=== PATIENT | male | born 1985 | race Caucasian/White ===

== ENCOUNTER 2020-05-23 15:53 | Emergency (ER) | payer OTHER ==
[2020-05-23 16:03] VITALS: RESP 16
--- NOTE | 2020-05-23 16:26 | ED ---
General Adult HPI - General Chief complaint: Seizure Stated complaint: seizure Time Seen by Provider: 05/23/20 15:55 Source: patient, EMS Mode of arrival: EMS Limitations: no limitations - History of Present Illness Initial comments: Dictation was produced using [employer] dictation software. please excuse any grammatical, word or spelling errors. This patient was cared for during a federal and state declared state of emergency secondary to Covid 19 Chief Complaint: 34-year-old male presents to the emergency room for seizure History of Present Illness: 34-year-old male who is brought to us via EMS from [facility]. Patient is they're trying to detoxify from alcohol and other drugs. Patient's history of seizures. Approximate 3:00 he was witnessed to have a seizure. According the transfer documentation he was postictal for several minutes. He does not recall the event. States that he has past medical history of seizure he is supposed to be on seizure medications. He states that the medication he is supposed beyond starts with a T. Patient believes that most of his seizures are due to alcohol withdrawal. Patient has no complaints at this time. The ROS documented in this emergency department record has been reviewed and confirmed by me. Those systems with pertinent positive or negative responses have been documented in the HPI. All other systems are other negative and/or noncontributory. PHYSICAL EXAM: General Impression: Alert and oriented x3, not in acute distress HEENT: Normocephalic atraumatic, extra-ocular movements intact, pupils equal and reactive to light bilaterally, mucous membranes moist. Cardiovascular: Heart regular rate and rhythm Chest: Able to complete full sentences, no retractions, no tachypnea Abdomen: abdomen soft, non-tender, non-distended, no organomegaly Musculoskeletal: Pulses present and equal in all extremities, no peripheral edema Motor: no focal deficits noted Neurological: CN II-XII grossly intact, no focal motor or sensory deficits noted Skin: Intact with no visualized rashes Psych: Normal affect and mood ED course: 34-year-old male with past medical history of seizures and alcohol abuse and alcohol withdrawal seizures presents after a seizure. Vital signs upon arrival are within acceptable limits. physical examination is benign. Return evaluation obtained. CBC, metabolic panel is unremarkable. Serum alcohol is negative. Patient observed in the emergency department for rocks while one hour with no recurrent seizures. He is reevaluated at 5:00 PM with stable medical condition. Patient will be discharged. He is strongly advised to follow-up with his primary care physician. He is told that he should likely be on antiepileptic medications. EKG interpretation: Ventricular rate 82, normal sinus rhythm, [place] interval 134, QRS 94, QTC 436.. No KY prolongation, no QTC prolongation, no ST or T-wave changes noted. No EKG for comparison. Overall, this EKG is unremarkable - Related Data Home Medications Medication Instructions Recorded Confirmed Acetaminophen Tab [Tylenol] 650 mg PO Q4H PRN 05/23/20 05/23/20 Calcium/Magnesium/Zinc 2 tab PO TID PRN 05/23/20 05/23/20 334mg/134mg/5mg Chlorpheniramine Maleate 4 mg PO Q4H PRN 05/23/20 05/23/20 [Chlor-Trimeton] Ibuprofen [Motrin] 600 mg PO Q6H PRN 05/23/20 05/23/20 Mirtazapine [Remeron] 30 mg PO HS@2200 05/23/20 05/23/20 Multivitamins, Thera [Multivitamin 1 tab PO DAILY@0600 05/23/20 05/23/20 (formulary)] Thiamine [Vitamin B-1] 100 mg PO DAILY@0600 05/23/20 05/23/20 Venlafaxine HCl [Effexor XR] 150 mg PO DAILY@0600 05/23/20 05/23/20 Allergies Allergy/AdvReac Type Severity Reaction Status Date / Time No Known Allergies Allergy Verified 05/23/20 16:39 Review of Systems ROS Statement: Those systems with pertinent positive or pertinent negative responses have been documented in the HPI. ROS Other: All systems not noted in ROS Statement are negative. 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 Past Psychological History: Depression Smoking Status: Current every day smoker Past Alcohol Use History: Abuse Past Drug Use History: None Reported General Exam Limitations: no limitations Course Vital Signs 05/23/20 15:58 Temperature 98.4 F Pulse Rate 87 Respiratory 16 Rate Blood Pressure 129/85 O2 Sat by Pulse 95 Oximetry Medical Decision Making - Lab Data Result diagrams: 05/23/20 16:27 05/23/20 16:27 Lab Results 05/23/20 05/23/20 05/23/20 Range/Units 16:27 16:27 16:37 WBC 14.5 H (3.8-10.6) k/uL RBC 4.91 (4.30-5.90) m/uL Hgb 15.4 (13.0-17.5) gm/dL Hct 46.4 (39.0-53.0) % MCV 94.5 (80.0-100.0) fL MCH 31.4 (25.0-35.0) pg MCHC 33.2 (31.0-37.0) g/dL RDW 13.0 (11.5-15.5) % Plt Count 326 (150-450) k/uL MPV 6.5 Neutrophils % 76 % Lymphocytes % 11 % Monocytes % 8 % Eosinophils % 3 % Basophils % 1 % Neutrophils # 10.9 H (1.3-7.7) k/uL Lymphocytes # 1.6 (1.0-4.8) k/uL Monocytes # 1.2 H (0-1.0) k/uL Eosinophils # 0.5 (0-0.7) k/uL Basophils # 0.1 (0-0.2) k/uL Sodium 136 L (137-145) mmol/L Potassium 4.5 (3.5-5.1) mmol/L Chloride 103 (98-107) mmol/L Carbon Dioxide 25 (22-30) mmol/L Anion Gap 8 mmol/L BUN 15 (9-20) mg/dL Creatinine 0.72 (0.66-1.25) mg/dL Est GFR (CKD-EPI)AfAm >90 (>60 ml/min/1.73 sqM) Est GFR (CKD-EPI)NonAf >90 (>60 ml/min/1.73 sqM) Glucose 101 H (74-99) mg/dL POC Glucose (mg/dL) 117 H (75-99) mg/dL POC Glu Computer Systems Manager ID [email or web address] Calcium 9.8 (8.4-10.2) mg/dL Magnesium 2.0 (1.6-2.3) mg/dL Total Bilirubin 0.3 (0.2-1.3) mg/dL AST 33 (17-59) U/L ALT 33 (4-49) U/L Alkaline Phosphatase 51 (38-126) U/L Total Protein 6.8 (6.3-8.2) g/dL Albumin 3.9 (3.5-5.0) g/dL Serum Alcohol <10 mg/dL Disposition Clinical Impression: Recurrent seizures Disposition: HOME SELF-CARE Condition: Fair Instructions (If sedation given, give patient instructions): Recurrent Seizures in Adults (ED) Additional Instructions: Follow-up with her primary care doctor to have your antiepileptic medication restarted. In the meantime no driving. Is patient prescribed a controlled substance at d/c from ED?: No Referrals: None,Stated [Primary Care Provider] - 1-2 days Time of Disposition: 17:02
[2020-05-23 16:39] LABS: Glucose,Whole Blood 117 mg/dL (75-99)
[2020-05-23 16:40] LABS: Basophils # (A) 0.1 k/uL (0-0.2); Basophils % (A) 1 %; Eosinophils # (A) 0.5 k/uL (0-0.7); Eosinophils % (A) 3 %; HCT 46.4 % (39.0-53.0); HGB 15.4 gm/dL (13.0-17.5); Lymphocytes # (A) 1.6 k/uL (1.0-4.8); Lymphocytes % (A) 11 %; MCH 31.4 pg (25.0-35.0); MCHC 33.2 g/dL (31.0-37.0); MCV 94.5 fL (80.0-100.0); Mean Platelet Volume 6.5; Monocytes # (A) 1.2 k/uL (0-1.0); Monocytes % (A) 8 %; Neutrophils # (A) 10.9 k/uL (1.3-7.7); Neutrophils % (A) 76 %; Platelet Count 326 k/uL (150-450); RBC 4.91 m/uL (4.30-5.90); WBC 14.5 k/uL (3.8-10.6)
[2020-05-23 16:52] LABS: ALT 33 U/L (4-49); AST 33 U/L (17-59); African American GFR (CKD) >90 (>60 ml/min/1.73 sqM); Albumin 3.9 g/dL (3.5-5.0); Alcohol <10 mg/dL; Alkaline Phosphatase 51 U/L (38-126); Anion Gap 8 mmol/L; Blood Urea Nitrogen 15 mg/dL (9-20); Calcium 9.8 mg/dL (8.4-10.2); Carbon Dioxide 25 mmol/L (22-30); Chloride 103 mmol/L (98-107); Glucose 101 mg/dL (74-99); Non-African American GFR(CKD) >90 (>60 ml/min/1.73 sqM); Potassium 4.5 mmol/L (3.5-5.1); Sodium 136 mmol/L (137-145); Total Bilirubin 0.3 mg/dL (0.2-1.3); Total Protein 6.8 g/dL (6.3-8.2)
[2020-05-23 17:42] VITALS: BP 122/78; PULSE 84; TEMP 98
== END 2020-05-23 17:40 | disposition home or self-care (01) ==
LOC: EC 15:53
DX: G40.909 Epilepsy, unspecified, not intractable, without status epilepticus (principal); F32.9 Major depressive disorder, single episode, unspecified; F17.200 Nicotine dependence, unspecified, uncomplicated; Z79.899 Other long term (current) drug therapy
CPT/HCPCS: 36415; 93005; 80053; 83735; 85025; 99284; G0480; 80320

== ENCOUNTER → 2021-01-01 | Outpatient (CLI) | payer OTHER ==
[2021-01-02 08:14] LABS: ALT 29 U/L (10-49); AST 26 U/L (14-35); African American GFR (CKD) 142.7 (60.0-200.0); Albumin 4.2 g/dL (3.8-4.9); Albumin/Globulin Ratio 1.75 (1.60-3.17); Alkaline Phosphatase 65 U/L (41-126); Blood Urea Nitrogen 11.9 mg/dL (9.0-27.0); Calcium 9.7 mg/dL (8.7-10.3); Chloride 103 mmol/L (96-109); Globulin 2.4 g/dL (1.6-3.3); Glucose 114 mg/dL (70-110); Non-African American GFR(CKD) 123.1 (60.0-200.0); Potassium 4.4 mmol/L (3.5-5.5); Sodium 139 mmol/L (135-145); Total Bilirubin <0.20 mg/dL (0.30-1.20); Total Protein 6.6 g/dL (6.2-8.2)
== END | disposition home or self-care (01) ==
LOC: LABWHC1 14:34
PROVIDERS: ATTEND Psychologist Clinical
DX: F10.20 Alcohol dependence, uncomplicated (principal)
CPT/HCPCS: 36415; 80053

== ENCOUNTER 2024-03-04 13:37 | Inpatient (IN) | payer OTHER, MEDICAID ==
[2024-03-04 14:17] LABS: Basophils % (A) 0 %; Eosinophils # (A) 0.1 k/uL (0-0.7); Eosinophils % (A) 1 %; HCT 46.9 % (39.0-53.0); HGB 15.8 gm/dL (13.0-17.5); Lymphocytes # (A) 1.2 k/uL (1.0-4.8); Lymphocytes % (A) 17 %; MCH 31.7 pg (25.0-35.0); MCHC 33.8 g/dL (31.0-37.0); Mean Platelet Volume 7.2; Monocytes # (A) 0.5 k/uL (0-1.0); Monocytes % (A) 7 %; Neutrophils # (A) 4.9 k/uL (1.3-7.7); Neutrophils % (A) 72 %; Platelet Count 226 k/uL (150-450); RBC 4.99 m/uL (4.30-5.90); RDW 13.3 % (11.5-15.5); WBC 6.8 k/uL (3.8-10.6)
[2024-03-04 14:22] LABS: Appearance,Urine Clear (Clear); Bilirubin,Urine Negative (Negative); Blood,Urine Negative (Negative); Color,Urine Yellow; Glucose,Urine (UA) Negative (Negative); Ketones,Urine Negative (Negative); Leukocyte Esterase,Urine Negative (Negative); Nitrite,Urine Negative (Negative); Protein,Urine Negative (Negative); Specific Gravity,Urine 1.013 (1.001-1.035)
[2024-03-04 14:37] LABS: ALT 29 U/L (4-49); AST 47 U/L (17-59); African American GFR (CKD) >90 (>60 ml/min/1.73 sqM); Albumin 4.5 g/dL (3.5-5.0); Alcohol <10 mg/dL; Alkaline Phosphatase 50 U/L (38-126); Anion Gap 7 mmol/L; Blood Urea Nitrogen 8 mg/dL (9-20); Calcium 9.5 mg/dL (8.4-10.2); Carbon Dioxide 31 mmol/L (22-30); Chloride 99 mmol/L (98-107); Glucose 115 mg/dL (74-99); Non-African American GFR(CKD) >90 (>60 ml/min/1.73 sqM); Potassium 3.7 mmol/L (3.5-5.1); Salicylate <1.0 mg/dL; Sodium 137 mmol/L (137-145); Total Protein 7.3 g/dL (6.3-8.2)
--- NOTE | 2024-03-04 14:42 | ED ---
Altered Mental Status HPI - General Chief Complaint: Altered Mental Status Stated Complaint: Mental Health Time Seen by Provider: 03/04/24 13:45 Source: patient, EMS Mode of arrival: EMS - History of Present Illness Initial Comments: 38-year-old male presents emergency department from his home. He is accompanied by officers. Patient was found in the parking lot of his apartment building. He was attempting to go through cars. He had a pillowcase over his head. He had very nonsensical speech. EMS was called to the scene and was required to transport the patient. The deposition operator states that the patient was talking to a man in the ambulance who was not there. I did attempt to question the patient as to why he is here however he is not sure. He reports that he is "not in tune with himself". He continues to be preoccupied by external stimuli he denies drug use. Admits to previous heavy alcohol use however quit drinking heavy 2 years ago. He does admit to drinking a bottle of Robitussin today in order to try and sleep. Denies having any family in the area. No other alleviating, precipitating or modifying factors - Related Data Previous Rx's Medication Instructions Recorded Paliperidone [Invega] 6 mg PO HS 30 Days #30 tab 03/07/24 traZODone HCL [Desyrel] 100 mg PO HS 30 Days #30 tab 03/07/24 Allergies Allergy/AdvReac Type Severity Reaction Status Date / Time No Known Allergies Allergy Verified 03/04/24 13:46 Review of Systems ROS Statement: Those systems with pertinent positive or pertinent negative responses have been documented in the HPI. ROS Other: All systems not noted in ROS Statement are negative. 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 Past Psychological History: Depression Smoking Status: Current every day smoker Past Alcohol Use History: Abuse Past Drug Use History: None Reported - Past Family History Mother History Unknown: Yes General Exam Limitations: altered mental status General appearance: alert Head exam: Present: atraumatic, normocephalic, normal inspection Eye exam: Present: normal appearance, PERRL, EOMI. Absent: scleral icterus, conjunctival injection, periorbital swelling ENT exam: Present: normal exam, mucous membranes moist Neck exam: Present: normal inspection. Absent: tenderness, meningismus, lym phadenopathy Respiratory exam: Present: normal lung sounds bilaterally. Absent: respiratory distress, wheezes, rales, rhonchi, stridor Cardiovascular Exam: Present: regular rate, normal rhythm, normal heart sounds. Absent: systolic murmur, diastolic murmur, rubs, gallop, clicks GI/Abdominal exam: Present: soft, normal bowel sounds. Absent: distended, tenderness, guarding, rebound, rigid Extremities exam: Present: normal inspection, full ROM, normal capillary refill. Absent: tenderness, pedal edema, joint swelling, calf tenderness Back exam: Present: normal inspection Neurological exam: Present: altered, CN II-XII intact Psychiatric exam: Present: agitated, anxious, manic Skin exam: Present: warm, dry, intact, normal color. Absent: rash Course Vital Signs 03/04/24 03/04/24 03/05/24 13:39 22:25 01:31 Temperature 98.4 F Pulse Rate 98 100 98 Respiratory 20 18 18 Rate Blood Pressure 149/92 150/90 138/98 O2 Sat by Pulse 96 98 100 Oximetry Medical Decision Making - Medical Decision Making Was pt. sent in by a medical professional or institution ([facility], P[facility]ET CLOSER, urgent care, hospital, or skilled nursing...) When possible be specific @ -Patient was brought in by police Did you speak to anyone other than the patient for history (EMS, parent, family, police, friend...)? What history was obtained from this source @ -Spoke with police and EMS for history Did you review nursing and triage notes (agree or disagree)? Why? @ -I reviewed and agree with nursing and triage notes Were old charts reviewed (outside hosp., previous admission, EMS record, old EKG, old radiological studies, urgent care reports/EKG's, skilled nursing records)? Report findings @ -No old charts were reviewed Differential Diagnosis (chest pain, altered mental status, abdominal pain women, abdominal pain men, vaginal bleeding, weakness, fever, dyspnea, syncope, headache, dizziness, GI bleed, back pain, seizure, CVA, palpatations, mental health, musculoskeletal)? @ -Differential Mental Health Depression, anxiety, bipolar, psychosis, schizophrenia, borderline personality, situational depression, adjustment disorder, behavioral disorder, brain tumor, malingering, substance abuse, encephalopathy, medication reaction, dementia, hypothyroidism, degenerative neurologic disorder, lupus.... This is not meant to be all-inclusive list EKG interpreted by me (3pts min.). @ -Yes and demonstrates sinus rhythm with a rate of 85. ND interval 130. QRS 96. QTc of 401. No acute ST segment elevations or depressions X-rays interpreted by me (1pt min.). @ -None done CT interpreted by me (1pt min.). @ -None done U/S interpreted by me (1pt. min.). @ -None done What testing was considered but not performed or refused? (CT, X-rays, U/S, labs)? Why? @ -None What meds were considered but not given or refused? Why? @ -None Did you discuss the management of the patient with other professionals (professionals i.e. , PA, POCKET CLOSER, lab, RT, psych nurse, oncology social work, mixing roll operator, teacher, youth officer, rn case manager hospice)? Give summary @ -Spoke with Talib, the [facility] oncology social work and made him aware that the patient was medically clear at 3:15 PM. He reports that he will pass on the note to his colleague Rochelle who will come down and evaluate the patient. I did speak with Rochelle myself x 2 via phone to ask if patient had been evaluated Was smoking cessation discussed for >3mins.? @ -No Was critical care preformed (if so, how long)? @ -No Were there social determinants of health that impacted care today? How? (Homelessness, low income, unemployed, alcoholism, drug addiction, transporta tion, low edu. Level, literacy, decrease access to med. care, prison, rehab)? @ -No Was there de-escalation of care discussed even if they declined (Discuss DNR or withdrawal of care, Hospice)? DNR status @ -No What co-morbidities impacted this encounter? (DM, HTN, Smoking, COPD, CAD, Cancer, CVA, ARF, Chemo, Hep., AIDS, mental health diagnosis, sleep apnea, morbid obesity)? @ -None Was patient admitted / discharged? Hospital course, mention meds given and route, prescriptions, significant lab abnormalities, going to OR and other pertinent info. @ -Upon arrival patient seen and evaluated in bed 6. Thorough history and physical exam was performed. Laboratory studies are conducted. Urinalysis was obtained. Patient was made medically clear at 3:15 PM. EPS was notified. After evaluation it was recommended that the patient be admitted and he did sign himself in. Patient will be taken for in stable condition Undiagnosed new problem with uncertain prognosis? @ -No Drug Therapy requiring intensive monitoring for toxicity (Heparin, Nitro, Insulin, Cardizem)? @ -No Were any procedures done? @ -No Diagnosis/symptom? @ -Acute delusional behavior Acute, or Chronic, or Acute on Chronic? @ -Acute Uncomplicated (without systemic symptoms) or Complicated (systemic symptoms)? @ -Complicated Side effects of treatment? @ -No Exacerbation, Progression, or Severe Exacerbation? @ -No Poses a threat to life or bodily function? How? (Chest pain, [place], [place], pneumonia, PE, COPD, DKA, ARF, appy, cholecystitis, CVA, Diverticulitis, Homicidal, Suicidal, threat to staff... and all critical care pts) @ -No - Lab Data Result diagrams: 03/04/24 14:07 03/04/24 14:07 Lab Results 03/04/24 03/04/24 03/04/24 Range/Units 14:07 14:07 14:07 WBC 6.8 (3.8-10.6) k/uL RBC 4.99 (4.30-5.90) m/uL Hgb 15.8 (13.0-17.5) gm/dL Hct 46.9 (39.0-53.0) % MCV 94.0 (80.0-100.0) fL MCH 31.7 (25.0-35.0) pg MCHC 33.8 (31.0-37.0) g/dL RDW 13.3 (11.5-15.5) % Plt Count 226 (150-450) k/uL MPV 7.2 Neutrophils % 72 % Lymphocytes % 17 % Monocytes % 7 % Eosinophils % 1 % Basophils % 0 % Neutrophils # 4.9 (1.3-7.7) k/uL Lymphocytes # 1.2 (1.0-4.8) k/uL Monocytes # 0.5 (0-1.0) k/uL Eosinophils # 0.1 (0-0.7) k/uL Basophils # 0.0 (0-0.2) k/uL Sodium 137 (137-145) mmol/L Potassium 3.7 (3.5-5.1) mmol/L Chloride 99 (98-107) mmol/L Carbon Dioxide 31 H (22-30) mmol/L Anion Gap 7 mmol/L BUN 8 L (9-20) mg/dL Creatinine 0.78 (0.66-1.25) mg/dL Est GFR (CKD-EPI)AfAm >90 (>60 ml/min/1.73 sqM) Est GFR (CKD-EPI)NonAf >90 (>60 ml/min/1.73 sqM) Glucose 115 H (74-99) mg/dL Estimated Ave Glu mg/dL mg/dL Hemoglobin A1c (<=6.0) % Calcium 9.5 (8.4-10.2) mg/dL Total Bilirubin 1.0 (0.2-1.3) mg/dL AST 47 (17-59) U/L ALT 29 (4-49) U/L Alkaline Phosphatase 50 (38-126) U/L Total Protein 7.3 (6.3-8.2) g/dL Albumin 4.5 (3.5-5.0) g/dL Triglycerides Cholesterol LDL Cholesterol Direct LDL Cholesterol, Calc VLDL Cholesterol, Calc HDL Cholesterol Cholesterol/HDL Ratio TSH Urine Color Yellow Urine Appearance Clear (Clear) Urine pH 7.0 (5.0-8.0) Ur Specific [place] 1.013 (1.001-1.035) Urine Protein Negative (Negative) Urine Glucose (UA) Negative (Negative) Urine Ketones Negative (Negative) Urine Blood Negative (Negative) Urine Nitrite Negative (Negative) Urine Bilirubin Negative (Negative) Urine Urobilinogen 2.0 (<2.0) mg/dL Ur Leukocyte Esterase Negative (Negative) Salicylates <1.0 mg/dL Urine Opiates Screen Not Detected (NotDetected) Ur Oxycodone Screen Not Detected (NotDetected) Urine Methadone Screen Not Detected (NotDetected) Acetaminophen 12.0 ug/mL Ur Barbiturates Screen Not Detected (NotDetected) U Tricyclic Antidepress Not Detected (NotDetected) Ur Phencyclidine Scrn Not Detected (NotDetected) Ur Amphetamines Screen Not Detected (NotDetected) U Methamphetamines Scrn Not Detected (NotDetected) U Benzodiazepines Scrn Not Detected (NotDetected) Urine Cocaine Screen Not Detected (NotDetected) U Marijuana (THC) Screen Detected H (NotDetected) Serum Alcohol <10 mg/dL Influenza Type A (PCR) (Not Detectd) Influenza Type B (PCR) (Not Detectd) RSV (PCR) (Not Detectd) SARS-CoV-2 (PCR) (Not Detectd) 03/04/24 03/04/24 03/04/24 Range/Units 14:07 14:07 14:07 WBC (3.8-10.6) k/uL RBC (4.30-5.90) m/uL Hgb (13.0-17.5) gm/dL Hct (39.0-53.0) % MCV (80.0-100.0) fL MCH (25.0-35.0) pg MCHC (31.0-37.0) g/dL RDW (11.5-15.5) % Plt Count (150-450) k/uL MPV Neutrophils % % Lymphocytes % % Monocytes % % Eosinophils % % Basophils % % Neutrophils # (1.3-7.7) k/uL Lymphocytes # (1.0-4.8) k/uL Monocytes # (0-1.0) k/uL Eosinophils # (0-0.7) k/uL Basophils # (0-0.2) k/uL Sodium (137-145) mmol/L Potassium (3.5-5.1) mmol/L Chloride (98-107) mmol/L Carbon Dioxide (22-30) mmol/L Anion Gap mmol/L BUN (9-20) mg/dL Creatinine (0.66-1.25) mg/dL Est GFR (CKD-EPI)AfAm (>60 ml/min/1.73 sqM) Est GFR (CKD-EPI)NonAf (>60 ml/min/1.73 sqM) Glucose (74-99) mg/dL Estimated Ave Glu mg/dL 105 mg/dL Hemoglobin A1c 5.3 (<=6.0) % Calcium (8.4-10.2) mg/dL Total Bilirubin (0.2-1.3) mg/dL AST (17-59) U/L ALT (4-49) U/L Alkaline Phosphatase (38-126) U/L Total Protein (6.3-8.2) g/dL Albumin (3.5-5.0) g/dL Triglycerides Cancelled Cholesterol Cancelled LDL Cholesterol Direct Cancelled LDL Cholesterol, Calc Cancelled VLDL Cholesterol, Calc Cancelled HDL Cholesterol Cancelled Cholesterol/HDL Ratio Cancelled TSH POCKET CLOSER 2.390 Urine Color Urine Appearance (Clear) Urine pH (5.0-8.0) Ur Specific [place] (1.001-1.035) Urine Protein (Negative) Urine Glucose (UA) (Negative) Urine Ketones (Negative) Urine Blood (Negative) Urine Nitrite (Negative) Urine Bilirubin (Negative) Urine Urobilinogen (<2.0) mg/dL Ur Leukocyte Esterase (Negative) Salicylates mg/dL Urine Opiates Screen (NotDetected) Ur Oxycodone Screen (NotDetected) Urine Methadone Screen (NotDetected) Acetaminophen ug/mL Ur Barbiturates Screen (NotDetected) U Tricyclic Antidepress (NotDetected) Ur Phencyclidine Scrn (NotDetected) Ur Amphetamines Screen (NotDetected) U Methamphetamines Scrn (NotDetected) U Benzodiazepines Scrn (NotDetected) Urine Cocaine Screen (NotDetected) U Marijuana (THC) Screen (NotDetected) Serum Alcohol mg/dL Influenza Type A (PCR) (Not Detectd) Influenza Type B (PCR) (Not Detectd) RSV (PCR) (Not Detectd) SARS-CoV-2 (PCR) (Not Detectd) 03/04/24 Range/Units 23:00 WBC (3.8-10.6) k/uL RBC (4.30-5.90) m/uL Hgb (13.0-17.5) gm/dL Hct (39.0-53.0) % MCV (80.0-100.0) fL MCH (25.0-35.0) pg MCHC (31.0-37.0) g/dL RDW (11.5-15.5) % Plt Count (150-450) k/uL MPV Neutrophils % % Lymphocytes % % Monocytes % % Eosinophils % % Basophils % % Neutrophils # (1.3-7.7) k/uL Lymphocytes # (1.0-4.8) k/uL Monocytes # (0-1.0) k/uL Eosinophils # (0-0.7) k/uL Basophils # (0-0.2) k/uL Sodium (137-145) mmol/L Potassium (3.5-5.1) mmol/L Chloride (98-107) mmol/L Carbon Dioxide (22-30) mmol/L Anion Gap mmol/L BUN (9-20) mg/dL Creatinine (0.66-1.25) mg/dL Est GFR (CKD-EPI)AfAm (>60 ml/min/1.73 sqM) Est GFR (CKD-EPI)NonAf (>60 ml/min/1.73 sqM) Glucose (74-99) mg/dL Estimated Ave Glu mg/dL mg/dL Hemoglobin A1c (<=6.0) % Calcium (8.4-10.2) mg/dL Total Bilirubin (0.2-1.3) mg/dL AST (17-59) U/L ALT (4-49) U/L Alkaline Phosphatase (38-126) U/L Total Protein (6.3-8.2) g/dL Albumin (3.5-5.0) g/dL Triglycerides Cholesterol LDL Cholesterol Direct LDL Cholesterol, Calc VLDL Cholesterol, Calc HDL Cholesterol Cholesterol/HDL Ratio TSH Urine Color Urine Appearance (Clear) Urine pH (5.0-8.0) Ur Specific [place] (1.001-1.035) Urine Protein (Negative) Urine Glucose (UA) (Negative) Urine Ketones (Negative) Urine Blood (Negative) Urine Nitrite (Negative) Urine Bilirubin (Negative) Urine Urobilinogen (<2.0) mg/dL Ur Leukocyte Esterase (Negative) Salicylates mg/dL Urine Opiates Screen (NotDetected) Ur Oxycodone Screen (NotDetected) Urine Methadone Screen (NotDetected) Acetaminophen ug/mL Ur Barbiturates Screen (NotDetected) U Tricyclic Antidepress (NotDetected) Ur Phencyclidine Scrn (NotDetected) Ur Amphetamines Screen (NotDetected) U Methamphetamines Scrn (NotDetected) U Benzodiazepines Scrn (NotDetected) Urine Cocaine Screen (NotDetected) U Marijuana (THC) Screen (NotDetected) Serum Alcohol mg/dL Influenza Type A (PCR) Not Detected (Not Detectd) Influenza Type B (PCR) Not Detected (Not Detectd) RSV (PCR) Not Detected (Not Detectd) SARS-CoV-2 (PCR) Not Detected (Not Detectd) Disposition Clinical Impression: Unspecified psychosis Disposition: TRANSFER TO PSYCH HOSP/UNIT Condition: Stable
[2024-03-04 14:48] LABS: Amphetamine Screen,Urine Not Detected (NotDetected); Barbiturate Screen,Urine Not Detected (NotDetected); Benzodiazepines Screen,Urine Not Detected (NotDetected); Cocaine Screen,Urine Not Detected (NotDetected); Methadone Screen, Urine Not Detected (NotDetected); Opiate Screen,Urine Not Detected (NotDetected); Oxycodone Screen, Urine Not Detected (NotDetected); Phencyclidine Screen,Urine Not Detected (NotDetected); Tricyclic Antidepressant,Urine Not Detected (NotDetected); Urn Cannabinoid Scrn Detected (NotDetected)
[2024-03-05] MEDS ORDERED: MAGNESIUM HYDROXIDE 2,400 MG/30 ML CUP PO PRN (01:11)
[2024-03-05] MEDS ORDERED: HALOPERIDOL LACTATE 5 MG/ML 1 ML VIAL IM PRN (01:11)
[2024-03-05] MEDS ORDERED: LORazepam 2 MG/ML INJ IM PRN (01:11)
[2024-03-05] MEDS: LORazepam 1 MG TAB PO PRN (03:23)
[2024-03-05] MEDS: haloperidoL 5 MG TAB PO PRN (03:23)
[2024-03-05] MEDS: traZODone HCL 50 MG TAB PO PRN (03:23)
[2024-03-05] MEDS: IBUPROFEN 600 MG TAB PO PRN (08:30)
[2024-03-05] MEDS: NICOTINE 14MG/24HR PATCH TRANSDERM SCH (08:31)
[2024-03-05] MEDS: PALIPERIDONE 3 MG TAB.ER.24 PO SCH (12:27)
--- NOTE | 2024-03-05 12:27 | P.HP ---
Psychiatric H&P - . H&P Date: 03/05/24 History & Physical: Allergies Allergy/AdvReac Type Severity Reaction Status Date / Time No Known Allergies Allergy Verified 03/04/24 13:46 Vital Signs Temp 98.0 F 03/05/24 02:59 Pulse 77 03/05/24 02:59 Resp 18 03/05/24 02:59 BP 141/93 03/05/24 02:59 Pulse Ox 98 03/05/24 02:59 FiO2 Intake & Output 03/04/24 03/05/24 03/05/24 18:59 06:59 18:59 Weight 99.79 kg 88.1 kg Laboratory Last Values WBC 6.8 k/uL (3.8-10.6) 03/04/24 14:07 RBC 4.99 m/uL (4.30-5.90) 03/04/24 14:07 Hgb 15.8 gm/dL (13.0-17.5) 03/04/24 14:07 Hct 46.9 % (39.0-53.0) 03/04/24 14:07 MCV 94.0 fL (80.0-100.0) 03/04/24 14:07 MCH 31.7 pg (25.0-35.0) 03/04/24 14:07 MCHC 33.8 g/dL (31.0-37.0) 03/04/24 14:07 RDW 13.3 % (11.5-15.5) 03/04/24 14:07 Plt Count 226 k/uL (150-450) 03/04/24 14:07 MPV 7.2 03/04/24 14:07 Neutrophils % 72 % 03/04/24 14:07 Lymphocytes % 17 % 03/04/24 14:07 Monocytes % 7 % 03/04/24 14:07 Eosinophils % 1 % 03/04/24 14:07 Basophils % 0 % 03/04/24 14:07 Neutrophils # 4.9 k/uL (1.3-7.7) 03/04/24 14:07 Lymphocytes # 1.2 k/uL (1.0-4.8) 03/04/24 14:07 Monocytes # 0.5 k/uL (0-1.0) 03/04/24 14:07 Eosinophils # 0.1 k/uL (0-0.7) 03/04/24 14:07 Basophils # 0.0 k/uL (0-0.2) 03/04/24 14:07 Sodium 137 mmol/L (137-145) 03/04/24 14:07 Potassium 3.7 mmol/L (3.5-5.1) 03/04/24 14:07 Chloride 99 mmol/L (98-107) 03/04/24 14:07 Carbon Dioxide 31 mmol/L (22-30) H 03/04/24 14:07 Anion Gap 7 mmol/L 03/04/24 14:07 BUN 8 mg/dL (9-20) L 03/04/24 14:07 Creatinine 0.78 mg/dL (0.66-1.25) 03/04/24 14:07 Est GFR (CKD-EPI)AfAm >90 (>60 ml/min/1.73 sqM) 03/04/24 14:07 Est GFR (CKD-EPI)NonAf >90 (>60 ml/min/1.73 sqM) 03/04/24 14:07 Glucose 115 mg/dL (74-99) H 03/04/24 14:07 Calcium 9.5 mg/dL (8.4-10.2) 03/04/24 14:07 Total Bilirubin 1.0 mg/dL (0.2-1.3) 03/04/24 14:07 AST 47 U/L (17-59) 03/04/24 14:07 ALT 29 U/L (4-49) 03/04/24 14:07 Alkaline Phosphatase 50 U/L (38-126) 03/04/24 14:07 Total Protein 7.3 g/dL (6.3-8.2) 03/04/24 14:07 Albumin 4.5 g/dL (3.5-5.0) 03/04/24 14:07 Urine Color Yellow 03/04/24 14:07 Urine Appearance Clear (Clear) 03/04/24 14:07 Urine pH 7.0 (5.0-8.0) 03/04/24 14:07 Ur Specific [place] Range 1.013 (1.001-1.035) 03/04/24 14:07 Urine Protein Negative (Negative) 03/04/24 14:07 Urine Glucose (UA) Negative (Negative) 03/04/24 14:07 Urine Ketones Negative (Negative) 03/04/24 14:07 Urine Blood Negative (Negative) 03/04/24 14:07 Urine Nitrite Negative (Negative) 03/04/24 14:07 Urine Bilirubin Negative (Negative) 03/04/24 14:07 Urine Urobilinogen 2.0 mg/dL (<2.0) 03/04/24 14:07 Ur Leukocyte Esterase Negative (Negative) 03/04/24 14:07 Salicylates <1.0 mg/dL 03/04/24 14:07 Urine Opiates Screen Not Detected (NotDetected) 03/04/24 14:07 Ur Oxycodone Screen Not Detected (NotDetected) 03/04/24 14:07 Urine Methadone Screen Not Detected (NotDetected) 03/04/24 14:07 Acetaminophen 12.0 ug/mL 03/04/24 14:07 Ur Barbiturates Screen Not Detected (NotDetected) 03/04/24 14:07 U Tricyclic Antidepress Not Detected (NotDetected) 03/04/24 14:07 Ur Phencyclidine Scrn Not Detected (NotDetected) 03/04/24 14:07 Ur Amphetamines Screen Not Detected (NotDetected) 03/04/24 14:07 U Methamphetamines Scrn Not Detected (NotDetected) 03/04/24 14:07 U Benzodiazepines Scrn Not Detected (NotDetected) 03/04/24 14:07 Urine Cocaine Screen Not Detected (NotDetected) 03/04/24 14:07 U Marijuana (THC) Screen Detected (NotDetected) H 03/04/24 14:07 Serum Alcohol <10 mg/dL 03/04/24 14:07 Influenza Type A (PCR) Not Detected (Not Detectd) 03/04/24 23:00 Influenza Type B (PCR) Not Detected (Not Detectd) 03/04/24 23:00 RSV (PCR) Not Detected (Not Detectd) 03/04/24 23:00 SARS-CoV-2 (PCR) Not Detected (Not Detectd) 03/04/24 23:00 03/05/24 12:20 IDENTIFYING DATA: Patient is a 38-year-old male, employed and living alone CHIEF COMPLAINT: Psychosis HPI: Patient presented to the hospital with mental health concerns. EPS note revealed, "pt sitting on chair in corner of room. pt states, "I'm just here figuring to get checked out, I guess." pt states that he felt "off" today, so he came to the hospital to be evaluated. pt was brought in and petitioned by police. pt has small wound on right side of the bridge of his nose and also one near his eyebrow. When asked how he injured himself, pt states, "I'm all fucked up. I'm guessing a drunk accident." pt also showed scientific writer his right outer thigh where there is a large bruise. pt denies SI. pt does report history of suicide attempts. pt states that he attempted "a long, long time ago" and also about 4 years ago by hanging. pt denies HI. pt initially denies hallucinations. However, pt then states, "Oh. Yeah. All the time," before denying it again. pt reports that he has been experiencing poor sleep for the past ccouple of weeks, stating that he has been "up for two days straight." pt also reports fluctuating appetite. Per petition, pt was seen with pillowcase over his head picking at the ground and was also attempting to speak with police at the squad car window despite police all being outside the car." Patient seen and evaluated on the unit and was agreeable with speaking to scientific writer in office. He states his ex girlfriend and him got into some trouble with "the marlene who runs this place" and that people have been out to harm both of them due to her inability to pay them back. He states he is no longer with his ex and that he has been unable to get in contact with her. He states he has been feeling this way since Monday and has been staying up at nighttime due to his fear about people harming him in his sleep. He describes these people as several individuals, wearing suits and have the ability to disappear. He states they have been listening to him through his [employer] and that he hears their voices however he denies any auditory hallucinations right now. He states he did ingest Robitussin to help with his sleep but he vehemently denied any substance use despite UDS being positive for cannabis. Patient displays poor insight into his need for treatment, stating he just needs to sleep however was agreeable with starting Invega. Patient denies any suicidal or homicidal ideations intent or plan. At this time patient denies any auditory or visual hallucinations. Patient denies any flight of ideas racing thoughts and increased in goal directed behavior. Patient admits to using nicotine, smoking 1 pack a day and vaping. PAST PSYCHIATRIC HISTORY: Patient has a history of alcohol use disorder. Patient denies being on any psychiatric medications. He has tried trazodone and Seroquel in the past. He reports 2 previous inpatient hospitalizations, most recent in 2017. Patient denies any psychiatric outpatient follow-up. He reports 1 prior suicide attempt PMH: as per ER note ALLERGIES: as per EMR SUBSTANCE USE HISTORY: As per HPI FAMILY PSYCHIATRIC/SUBSTANCE USE HISTORY: Reports his father abused alcohol SOCIAL HISTORY: Patient has 1 grown son however he reports living alone. He is single and works in construction. He completed high school. MENTAL STATUS EXAM: General Appearance: Patient appears to be stated age is alert, directable, and attempts to cooperate. Patient appears to have poor hygiene and grooming. Notably has several bruises on his face Behavior: Patient is seated without any agitated behavior. Speech: Patient's speech is fluent and nonpressured. Mood/Affect: Patient reports their mood is "all right", affect is congruent and constricted. Suicidality/Homicidality: Patient denies having any homicidal ideation intent or plan. Denies any suicidal ideations intent or plan Perceptions: Patient denies any visual hallucinations and denies any auditory hallucinations Though content/process: There is evidence of paranoia, delusional and disorganized thoughts expressed Memory and concentration: AOX3, grossly intact for the purposes of this session. Can spell "WORLD" backwards Judgment and insight: Poor STRENGTHS/WEAKNESSES: strength is that patient is resilient. Weakness is that patient has poor judgment, uses substances and is impulsive INTELLECT: Average IMPRESSIONS: Psychosis, unspecified Rule out substance-induced psychosis Cannabis use disorder Alcohol use disorder Nicotine dependence PLAN: -Patient is admitted under voluntary status to MHU for stabilization of psychiatric symptoms and safety. Patient has signed adult voluntary form and medication consent and is placed in patient's chart. -Medications : Start Invega 3 mg daily for psychosis, trazodone 50 mg at bedtime for insomnia -Ativan and Haldol PRN for agitation/aggression -Patient was counselled on substance abuse and desired to cut back on use-Will offer patient subtance use rehab -Patient was informed of the risks, benefits and side effects of the medication and patient verbally consented to taking the medications. Patient signed med consent form and was placed in chart. -Internal Medicine consult to perform medical evaluation and physical. -NRT -nicotine patch -SW on board for discharge planning. Encourage patient to participate in groups to work on coping skills. Anticipate discharge back home later this week pending stabilization in psychosis
[2024-03-05] MEDS: ACETAMINOPHEN TAB 325 MG TAB PO PRN (17:39)
[2024-03-05] MEDS: traZODone HCL 50 MG TAB PO SCH (21:11)
--- NOTE | 2024-03-06 10:36 | P.PN ---
Progress Note - Text Progress Note Date: 03/06/24 Interval History: Patient was seen in bed and was directable and agreeable to speak with creative writer in the office. Patient was less disorganized in conversation, future oriented. 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 Patient talked about maintaining his independence as he is living alone and working a job and reportedly refraining from substances. He states having a sponsor. He reports some fatigue from the Invega however is agreeable with changing this medication to nighttime. Patient notably was less paranoid today, not even mentioning the people out to get him and his ex today. He states feeling safe to return back home. He has been tending to his ADLs. He reports issues with sleep overnight which she feels like is related to the environment. At this time patient denies any suicidal or homicidal ideations, intent or plan. Patient denies any auditory, visual hallucinations and denies any delusions. Patient has been compliant with meds. Mental Status Exam: General Appearance: Patient appears to be stated age is alert, directable, and cooperative. Behavior: Patient is calmly seated without any agitated behavior. Speech: Patient's speech is fluent and talkative, nonpressured. Mood/Affect: Mood is improving mildly, affect is congruent and blunted. Suicidality/Homicidality: Patient denies having any suicidal or homicidal ideation intent or plan. Perceptions: Patient denies any visual hallucinations and denies any auditory hallucinations Though content/process: There is less paranoia and more linear thoughts today Memory and concentration: AOX3, grossly intact for the purposes of this session Judgment and insight: Improving mildly Assessment Psychosis, unspecified Rule out substance-induced psychosis Cannabis use disorder Alcohol use disorder Nicotine dependence Plan: -Patient continues to meet criteria for inpatient psychiatric admission for symptom stabilization and safety. Patient has signed adult voluntary form and medication consent and was placed in patient's chart. -Medications: Increase Invega to 3 mg twice daily for psychosis, increase trazodone to 100 mg at bedtime for insomnia -When necessary Ativan and Haldol for agitation/aggression. -Labs: Reviewed -NRT -nicotine patch -SW on board for discharge planning. Encouraged the patient to participate in milieu. Anticipate discharge back home tomorrow
[2024-03-06 10:55] LABS: Chol/HDL Ratio 1.85 Ratio; LDL Cholesterol,Calculated 47.6 mg/dL (0.0-131.0)
[2024-03-06] MEDS: MAG HYDROX/AL HYDROX/SIMETH 355 ML BOTTLE PO PRN (16:41)
[2024-03-06] MEDS: PALIPERIDONE 3 MG TAB.ER.24 PO SCH (21:20)
[2024-03-06] MEDS: traZODone HCL 100 MG TAB PO SCH (21:21)
--- NOTE | 2024-03-07 02:05 | P.MDCNMH ---
<JeanieThad - Last Filed: 03/07/24 02:06> History of Present Illness H&P Date: 03/07/24 Chief Complaint: H&P Patient is a 38-year-old male with past medical history of seizure disorder has been admitted for psychosis. The patient was seen in the mental health unit while accompanied by MHU RN. Patient did report that on Monday he had an episode of seizure activity and bit on the right side of his tongue and currently reports some soreness and pain on his tongue. Patient has been taking acetaminophen and ibuprofen although still complains of some pain. He has not had any other seizure activity since then. He denied experiencing chest discomfort, shortness of breath, fever, chills, nausea, vomiting, abdominal, diarrhea, constipation. Vitals on admission temperature of 97.4, pulse rate 70, respiratory rate 16, blood pressure 126/68, oxygen saturation 99% on room air UA shows negative for nitrites and leukocyte esterase Urine tox screen was positive for marijuana Review of systems: Pertinent positives and negatives as discussed in HPI, a complete review of systems was performed and all other systems are negative. PMH: History of seizure disorder PSH: History of severed tendon and left hand FMH: No pertinent family history Allergies: No known drug allergies Social history: Tobacco: Currently everyday smoker, smokes 1 pack/day for the past 21 years Alcohol: Occasional alcohol use Recreational drugs: Marijuana Travel: No recent travel history Sick contacts: No recent sick contacts Physical examination: Vital signs reviewed General: nontoxic, no distress, appears at stated age Derm: warm, dry, intact Head: atraumatic, normocephalic, symmetric Eyes: EOMI, anicteric sclera Mouth: no lip lesion, mucus membranes moist, and approximate 1 cm X 0.5 cm wound noted on the right portion of his tongue with granulation tissue. No bleeding, purulent drainage, signs of infection noted. Cardiovascular: S1 S2 reg, no murmur Lungs: CTA bilateral, no rhonchi, no rales, no accessory muscle use Abdominal: soft, non-tender to palpation Extremities: No cyanosis, clubbing, or pedal edema. Neuro: Alert and oriented. No contractures. Psych: well appearing, appropriate affect Assessment/Plan: Marijuana use Alcohol use disorder Nicotine dependence Psychosis Imaging: EKG independently interpreted as sinus rhythm Data review: Labs on admission show WBC of 6.8, hemoglobin 15.8, hematocrit 46.9, platelet 226, sodium 137, potassium 3.7, chloride 99, carbon dioxide 31, BUN 8, creatinine 0.78, glucose 115, TSH 2.39, serum alcohol less than 10 Plan: Advised patient that the wound will likely heal on its own. Advised patient to continue using Tylenol and ibuprofen for pain control. Defer management of psychosis to primary psychiatric service Past Medical History Past Medical History: Seizure Disorder Additional Past Medical History / Comment(s): (L) eye injury History of Any Multi-Drug Resistant Organisms: None Reported Additional Past Surgical History / Comment(s): hx of severed tendon in (L) hand. Past Anesthesia/Blood Transfusion Reactions: No Reported Reaction Smoking Status: Current every day smoker, Vaper - Past Family History Mother History Unknown: Yes Medications and Allergies Home Medications Medication Instructions Recorded Confirmed Type Unable To Assess [Unable to Assess] 03/04/24 03/04/24 History Allergies Allergy/AdvReac Type Severity Reaction Status Date / Time No Known Allergies Allergy Verified 03/04/24 13:46 Physical Exam Vitals: Vital Signs Temp Pulse Resp BP Pulse Ox 03/06/24 06:25 97.4 F L 70 16 126/68 99 Results CBC & Chem 7: 03/04/24 14:07 03/04/24 14:07 Labs: Abnormal Lab Results - Last 24 Hours (Table) 03/06/24 Range/Units 08:04 HDL Cholesterol 76.90 H (40.00-60.00) mg/dL <Jerod Perez - Last Filed: 03/07/24 06:59> History of Present Illness Vague history of possible seizure disorder, not currently on medications. patient has chronic alcohol abuse, which is thought to be the reason for his possible seizure episode, Alcohol can lower threshold for seizures, and can also precipitate alcohol withdrawal seizures. if confirmed history of seizure disorder, patient need to be advised per [place] state law , not to drive or operate heavy machinery, patient can not swim unsupervised patient needs to follow up with neurology for further workup to confirm or rule out seizure disorder. Cranial Nerve Examination - Cranial Nerves Cranial Nerve II- Optic: Intact Cranial Nerve III- Oculomotor: Intact Cranial Nerve IV- Trochlear: Intact Cranial Nerve V- Trigeminal: Intact Cranial Nerve - Abducens: Intact Cranial Nerve VII- Facial: Intact Cranial Nerve VIII- Auditory: Intact Cranial Nerve IX- Glossopharyngeal: Intact Cranial Nerve X- Vagus: Intact Cranial Nerve XI- Accessory: Intact Cranial Nerve XII- Hypoglossal: Intact Results CBC & Chem 7: 03/04/24 14:07 03/04/24 14:07 Labs: Abnormal Lab Results - Last 24 Hours (Table) 03/06/24 Range/Units 08:04 HDL Cholesterol 76.90 H (40.00-60.00) mg/dL
[2024-03-07 06:59] VITALS: RESP 18; TEMP 98
[2024-03-07 08:50] VITALS: BP 115/78; PULSE 85
--- NOTE | 2024-03-07 11:36 | P.DS ---
Providers Date of admission: 03/05/24 01:08 Expected date of discharge: 03/07/24 Attending physician: Belinda Mc MD Consults: 03/05/24 01:11 Consult Physician Routine Consulting Provider: Deloris Hi Consult Reason/Comments: H & P Do you want consulting provider notified?: Yes, Notify in am Primary care physician: Stated None - Discharge Diagnosis(es) (1) Unspecified psychosis Current Visit: Yes Status: Acute Priority: High (2) Cannabis use disorder Current Visit: Yes Status: Acute Priority: Medium (3) Alcohol use disorder Current Visit: Yes Status: Acute Priority: Medium (4) Nicotine dependence Current Visit: Yes Status: Acute Priority: Low Hospital Course: Admission HPI: Admission note was completed by card writer hand "Patient presented to the hospital with mental health concerns. EPS note revealed, "pt sitting on chair in corner of room. pt states, "I'm just here figuring to get checked out, I guess." pt states that he felt "off" today, so he came to the hospital to be evaluated. pt was brought in and petitioned by police. pt has small wound on right side of the bridge of his nose and also one near his eyebrow. When asked how he injured himself, pt states, "I'm all fucked up. I'm guessing a drunk accident." pt also showed card writer hand his right outer thigh where there is a large bruise. pt denies SI. pt does report history of suicide attempts. pt states that he attempted "a long, long time ago" and also about 4 years ago by hanging. pt denies HI. pt initially denies hallucinations. However, pt then states, "Oh. Yeah. All the time," before denying it again. pt reports that he has been experiencing poor sleep for the past ccouple of weeks, stating that he has been "up for two days straight." pt also reports fluctuating appetite. Per petition, pt was seen with pillowcase over his head picking at the ground and was also attempting to speak with police at the squad car window despite police all being outside the car." Patient seen and evaluated on the unit and was agreeable with speaking to card writer hand in office. He states his ex girlfriend and him got into some trouble with "the marlene who runs this place" and that people have been out to harm both of them due to her inability to pay them back. He states he is no longer with his ex and that he has been unable to get in contact with her. He states he has been feeling this way since Monday and has been staying up at nighttime due to his fear about people harming him in his sleep. He describes these people as several individuals, wearing suits and have the ability to disappear. He states they have been listening to him through his [employer] and that he hears their voices however he denies any auditory hallucinations right now. He states he did ingest Robitussin to help with his sleep but he vehemently denied any substance use despite UDS being positive for cannabis. Patient displays poor insight into his need for treatment, stating he just needs to sleep however was agreeable with starting Invega. Patient denies any suicidal or homicidal ideations intent or plan. At this time patient denies any auditory or visual hallucinations. Patient denies any flight of ideas racing thoughts and in creased in goal directed behavior. Patient admits to using nicotine, smoking 1 pack a day and vaping." Hospital course: Upon admission to the unit patient was directable and agreeable to commence tr eatment and signed adult voluntary form.. Patient got along well with other patients on the unit and followed unit protocol. Patient was compliant with the medications and denied any side effects throughout hospital course. Patient was started on Invega and this was increased to 6 mg p.o. at bedtime for psychosis, trazodone increased to 100 mg at bedtime for insomnia. Patient spoke of his stressors and engaged in therapy both group and individual. Patient was also seen by medical team for history and physical exam. Throughout the course of the hospitalization patient gradually improved with regards to mood, anxiety, sleep and became more future oriented with improved insight and judgment. On the day of discharge patient denied any suicidal or homicidal ideations intent or plan denied any auditory or visual hallucinations. The patient denied any access to guns or weapons. Patient denied any paranoia and did not endorse any delusions. Patient does have a significant history of substance abuse and was counseled on abstaining from all substances including alcohol and marijuana. Patient was offered however declined inpatient substance-abuse rehab. Patient was also counseled on the medications and need for regular compliance and was encouraged to follow-up with their outpatient appointment for mental health and also for primary care. Patient to be discharged back home to self with [facility] follow-up. Mental status exam: General Appearance: Patient appears to be stated age is alert, pleasant, and cooperative. Patient is in no acute distress and has improved hygiene and groo renee. He has healing scabs on his face Behavior: Patient is calmly seated without any agitated behavior. Speech: Patient's speech is fluent and nonpressured. Mood/Affect: Patient reports their mood is "good", affect is congruent and euthymic. Suicidality/Homicidality: Patient denies having any suicidal or homicidal ideation intent or plan. Perceptions: Patient denies any auditory or visual hallucinations. Though content/process: There is no evidence of any delusional thought content and thought process is linear and goal-directed. More future oriented Memory and concentration: AOX3, grossly intact for the purposes of this session. Can spell "WORLD" backwards correctly. Judgment and insight: Fair Impression: Psychosis, unspecified, rule out substance-induced psychosis Cannabis use disorder Alcohol use disorder Nicotine dependence Plan: -Continue with discharge today as patient has improved and stabilized psychiatrically and is not currently an imminent threat to themself and/or others. Patient will remain at chronically elevated risk for harm to self and/or others due to their impulsivity and substance abuse. -Continue medications: Invega 6 mg at bedtime, trazodone 100 mg at bedtime -Patient was counseled on the need for medication compliance and appropriate follow-up at mental health and also primary care for medical issues. Patient verbalized understanding and agreed. -Social work to help coordinate patients discharge today. also to ensure safe home environment that guns/weapons are either removed from the home or locked away. Social work also to arrange for patients follow up appointments with [facility] for psychiatric care along with follow up with primary care provider. -Patient counseled on abstaining from recreational drugs and marijuana and alcohol. Was informed/educated on the adverse effects on their physical and mental health. Patient verbally agreed and understood. Patient was offered substance abuse treatment however declined at this time. -Patient was instructed to return to the hospital or seek immediate medical care if their psychiatric or medical symptoms do worsen or reoccur. Abnormal Labs 03/04/24 03/04/24 03/06/24 14:07 14:07 08:04 Carbon Dioxide 31 H BUN 8 L Glucose 115 H HDL Cholesterol 76.90 H U Marijuana (THC) Screen Detected H Vital Signs Temp 98 F 03/07/24 06:36 Pulse 85 03/07/24 08:50 Resp 18 03/07/24 06:36 BP 115/78 03/07/24 08:50 Pulse Ox 98 03/07/24 06:36 FiO2 Allergies Allergy/AdvReac Type Severity Reaction Status Date / Time No Known Allergies Allergy Verified 03/04/24 13:46 Patient Condition at Discharge: Stable Plan - Discharge Summary Discharge Rx Participant: No New Discharge Prescriptions: New traZODone HCL [Desyrel] 100 mg PO HS 30 Days #30 tab Paliperidone [Invega] 6 mg PO HS 30 Days #30 tab Discharge Medication List Paliperidone [Invega] 6 mg PO HS 30 Days #30 tab 03/07/24 [Rx] traZODone HCL [Desyrel] 100 mg PO HS 30 Days #30 tab 03/07/24 [Rx] Follow up Appointment(s)/Referral(s): [facility] [Outside] - 03/12/24 1:00 pm [facility] [NON-STAFF] - 1-2 days Patient Instructions/Handouts: How to Stop Smoking (DC), Abuse of Alcohol (DC), Cannabis Abuse (DC), Psychotic Disorder (DC) Activity/Diet/Wound Care/Special Instructions: Avoid the use of street drugs and alcohol. Take all medications as prescribed. When you are in need of refills on your medications, please contact your medical provider and/or outpatient psychiatrist/provider to have this done. Please go to your scheduled outpatient appointment for aftercare treatment. If symptoms return or become worse, call the crisis line at and/or go to the nearest emergency room for evaluation. National Suicide Hotline 988 Discharge/Stand Alone Forms: Area PCPs Discharge Disposition: HOME SELF-CARE
== END 2024-03-07 14:27 | disposition home or self-care (01) | DRG 885 ==
LOC: EC 13:37 → 3MHU 03-05 01:08
PROVIDERS: ADMIT Psychiatry & Neurology Psychiatry; ATTEND Psychiatry & Neurology Psychiatry
DX: F29 Unspecified psychosis not due to a substance or known physiological condition (principal); F17.210 Nicotine dependence, cigarettes, uncomplicated; F17.290 Nicotine dependence, other tobacco product, uncomplicated; F12.10 Cannabis abuse, uncomplicated; R45.1 Restlessness and agitation; F10.10 Alcohol abuse, uncomplicated; F41.9 Anxiety disorder, unspecified; G40.909 Epilepsy, unspecified, not intractable, without status epilepticus; G47.00 Insomnia, unspecified; Z91.51 Personal history of suicidal behavior; Z71.51 Drug abuse counseling and surveillance of drug abuser; Z11.52 Encounter for screening for COVID-19; Z28.21 Immunization not carried out because of patient refusal; Z60.2 Problems related to living alone
CPT/HCPCS: 36415; 80053; 80061; 80143; 80179; 80306; 80320; 81003; 82075; 83036; 84443; 85025; 87636; 99285